=== PATIENT | male | born 1975 | race Caucasian/White ===

== ENCOUNTER 2016-11-04 05:25 | Day surgery (SDC) | payer BC ==
[~2016-11-04] VITALS: Ht 175.3 cm; Wt 78.0 kg
[~2016-11-04 05:25] MED LIST: AZULFIDINE500 MG PO; IMURAN50 MG PO; MULTI-DAY VITAM1 TAB PO
[2016-11-04 06:21] VITALS: BP 105/54; Ht 175.3 cm; Wt 78.0 kg
--- NOTE | 2016-11-04 13:51 | OP ---
PATIENT NAME: DU BARBOSA MEDICAL RECORD: [id number] :73 LOCATION:[facility] ADMISSION DATE: SURGEON: JOSE BETTS MD OPERATION DATE: 11/04/16 DATE OF OPERATION: 11/04/2016 SURGEON: Jose Betts MD PREOPERATIVE DIAGNOSIS: Bilateral inguinal hernia. POSTOPERATIVE DIAGNOSIS: Bilateral inguinal hernia. PROCEDURE PERFORMED: Laparoscopic bilateral inguinal hernia repair with mesh. ANESTHESIA: General. COMPLICATIONS: None. SPECIMENS: None. Case was clean. ESTIMATED BLOOD LOSS: 20 cc. OPERATIVE COURSE: After consent was obtained, the patient was taken to the operating room and placed in the supine position on the operating table. Next, general anesthesia was given via endotracheal intubation after a timeout was performed to confirm the correct patient and procedure. The abdomen was prepped and draped in typical sterile fashion. An Ioban dressing was placed. Local anesthetic was injected just to the right of the umbilicus. A skin incision made with a 15 blade scalpel. Dissection continued to the level of the external oblique fascia with electrocautery. The external oblique fascia was incised with 15-blade scalpel. The rectus muscles were gently with a blunt Andreia until the posterior sheath was identified. The Spacemaker balloon was then inserted into the preperitoneal space and advanced to the pubic tubercle. The Spacemaker balloon was inflated and left inflated for 3 minutes to ensure hemostasis. Next, the Spacemaker balloon was removed. The preperitoneal space was inflated with CO2. At this time, two 5-mm trocars were placed, one in the right lower quadrant, one into the left lower quadrant under direct laparoscopic vision. The left inguinal hernia was repaired first. The hernia sac was identified. It was dissected inferiorly until the vas was noted to be running medially and the vessels running laterally. The cord lipoma was dissected off the hernia sac. This was repeated on the right side. Again, the hernia sac was identified. It was dissected inferiorly until the vas was noted to be running medially and the vessels running laterally. Dissection continued laterally on both sides to allow for adequate placement of the mesh. The pubic tubercle was dissected medially. There was no direct inguinal hernia was noted. At this time, a left-sided Bard 3DMax mesh was placed in the abdomen and secured to Mingo's ligament, medial. A single stitch with an OptiFix Tacker, single tack was placed in the posterior rectus anteriorly. A right-sided mesh was then placed in the preperitoneal space, again was secured to Mingo's ligament, medial; secured to the rectus anteriorly. At this time, the preperitoneal space was copiously irrigated and suctioned. Careful attention was paid the hemostasis. There is no evidence of bleeding. At this time, the instruments OPERATIVE REPORT [id number] DU BARBOSA removed. The preperitoneal space was desufflated. The trocars removed. The external oblique fascia was closed with an 0 Vicryl suture in an interrupted [id number]. Skin incisions were closed with 4-0 Monocryl, Mastisol and Steri-Strips. At the end of the case, all needle and instrument counts were correct. No complications occurred. The patient was extubated and transferred to the PACU in stable condition. TRANSINT:[id number] Voice Confirmation ID: [id number] DOCUMENT ID: [id number] JOSE BETTS MD at 1351 CC: [id number] DICTATION DATE: 11/04/16 1128 [employer]ER CHIEF: 11/04/16 1253 [facility] [address] [id number]
--- NOTE | 2016-11-04 15:39 | NUR ---
1245--PT VOIDS WITHOUT DIFFICULTY, IV DC'D. PT UP TO DRESS AT THIS TIME. SHANNON PABON 1301--DISCHARGE INSTRUCTIONS GIVEN, PT VERBALIZES UNDERSTANDING. PT OFF UNIT VIA WC. SHANNON PABON
== END 2016-11-04 13:05 | disposition home or self-care (01) ==
LOC: D.OPS 05:25 → D.PAN 09:00 → D.OPS 09:00
DX: K40.20 Bilateral inguinal hernia, without obstruction or gangrene, not specified as recurrent (principal); Z01.812 Encounter for preprocedural laboratory examination